=== PATIENT | female | born 1995 ===

== ENCOUNTER 2020-11-21 15:35 | Inpatient (IN) | payer MEDICAID ==
[~2020-11-21] VITALS: Ht 154.9 cm; Wt 59.0 kg
[2020-11-21] MEDS ORDERED: ONDANSETRON ODT 4 MG PO PRN (17:00)
[2020-11-21] MEDS ORDERED: POLYETHYLENE GLYCOL 17 GM PACKET PO PRN (17:00)
[2020-11-21] MEDS ORDERED: ACETAMINOPHEN 325 MG TABLET PO PRN (17:00)
[2020-11-21] MEDS ORDERED: MELOXICAM 15 MG TABLET PO PRN (17:00)
[2020-11-21] MEDS ORDERED: BISACODYL 10 MG SUPP PR PRN (17:00)
[2020-11-21] MEDS ORDERED: MELO7.5T5 PO (17:12)
[2020-11-21] MEDS ORDERED: BENZ2TAB6 PO (17:12)
[2020-11-21] MEDS ORDERED: TRAZ-175 PO (17:12)
[2020-11-21] MEDS ORDERED: CARI1CAP PO (17:12)
[2020-11-21] MEDS ORDERED: CYCL5TAB PO (17:12)
[2020-11-21] MEDS ORDERED: LORazepam 1MG TABLET PO PRN (17:30)
[2020-11-21 19:55] VITALS: BP 118/85
[2020-11-21 20:00] VITALS: BP 118/85
[2020-11-21] MEDS ORDERED: BENZTROPINE 1 MG TABLET PO SCH (21:00)
[2020-11-21] MEDS: CYCLOBENZAPRINE 10 MG TABLET PO SCH (21:30)
[2020-11-21] MEDS: TRAZODONE 100MG TABLET PO PRN (21:31)
[2020-11-22 05:46] LABS: CHOL/HDL RATIO 2.4; FREE T4 (FREE THYROXINE) 0.92 ng/dL (0.76-1.46); LDL/HDL RATIO 1.1 (0.5-3.0)
[2020-11-22 07:30] VITALS: BP 100/65
[2020-11-22] MEDS: CARIPRAZINE 3 MG CAP PO SCH (08:37)
[2020-11-22] MEDS: NICOTINE 7 MG/24 HR PATCH.TD24 TD SCH (08:40)
[2020-11-22] MEDS ORDERED: LITH300T3 PO (08:46)
[2020-11-22 19:28] VITALS: BP 100/64
[2020-11-22] MEDS: CYCLOBENZAPRINE 10 MG TABLET PO SCH (20:44)
[2020-11-22] MEDS: TRAZODONE 100MG TABLET PO PRN (20:45)
[2020-11-22] MEDS: BENZTROPINE 1 MG TABLET PO SCH (20:45)
[2020-11-22] MEDS: LITHIUM CARBONATE 300 MG CAPSULE PO SCH (20:45)
[2020-11-22] MEDS: TRIAMCINOLONE CRM 0.1%, 15GM TP SCH (20:45)
[2020-11-23 07:26] VITALS: BP 106/73
[2020-11-23] MEDS: CARIPRAZINE 3 MG CAP PO SCH (09:00)
[2020-11-23] MEDS: TRIAMCINOLONE CRM 0.1%, 15GM TP SCH ×2 (09:36→20:33)
[2020-11-23] MEDS: NICOTINE 7 MG/24 HR PATCH.TD24 TD SCH (09:37)
[2020-11-23] MEDS: LITHIUM CARBONATE 300 MG CAPSULE PO SCH ×2 (09:37→20:33)
[2020-11-23] MEDS ORDERED: CARIPRAZINE 3 MG CAP PO SCH (18:00)
[2020-11-23 19:40] VITALS: BP 104/76
[2020-11-23] MEDS: BENZTROPINE 1 MG TABLET PO SCH (20:32)
[2020-11-23] MEDS: CYCLOBENZAPRINE 10 MG TABLET PO SCH (20:33)
[2020-11-23] MEDS: TRAZODONE 100MG TABLET PO PRN (20:42)
[2020-11-24 07:41] VITALS: BP 106/73
[2020-11-24] MEDS: TRIAMCINOLONE CRM 0.1%, 15GM TP SCH ×2 (09:00→20:54)
[2020-11-24] MEDS: LITHIUM CARBONATE 300 MG CAPSULE PO SCH ×2 (09:15→20:53)
[2020-11-24] MEDS: NICOTINE 7 MG/24 HR PATCH.TD24 TD SCH (09:15)
[2020-11-24] MEDS: CARIPRAZINE 3 MG CAP PO SCH (17:41)
[2020-11-24 19:42] VITALS: BP 102/65
[2020-11-24] MEDS: TRAZODONE 100MG TABLET PO PRN (20:53)
[2020-11-24] MEDS: CYCLOBENZAPRINE 10 MG TABLET PO SCH (20:53)
[2020-11-24] MEDS: BENZTROPINE 1 MG TABLET PO SCH (20:53)
[2020-11-25 07:44] VITALS: BP 101/62
[2020-11-25] MEDS: NICOTINE 7 MG/24 HR PATCH.TD24 TD SCH (08:30)
[2020-11-25] MEDS: LITHIUM CARBONATE 300 MG CAPSULE PO SCH ×2 (08:31→19:43)
[2020-11-25] MEDS: TRIAMCINOLONE CRM 0.1%, 15GM TP SCH ×2 (08:39→19:43)
[2020-11-25] MEDS: CARIPRAZINE 3 MG CAP PO SCH (17:00)
[2020-11-25] MEDS: CYCLOBENZAPRINE 10 MG TABLET PO SCH (19:43)
[2020-11-25] MEDS: BENZTROPINE 1 MG TABLET PO SCH (19:43)
[2020-11-25 19:50] VITALS: BP 105/65
[2020-11-25] MEDS: TRAZODONE 100MG TABLET PO PRN (20:18)
[2020-11-26 08:03] VITALS: BP 113/75
[2020-11-26] MEDS: NICOTINE 7 MG/24 HR PATCH.TD24 TD SCH (08:07)
[2020-11-26] MEDS: LITHIUM CARBONATE 300 MG CAPSULE PO SCH (08:07)
[2020-11-26] MEDS: TRIAMCINOLONE CRM 0.1%, 15GM TP SCH (08:10)
[2020-11-26] MEDS ORDERED: LITH300C PO (10:03)
[2020-11-26] MEDS ORDERED: NICO-485 TD (10:03)
[2020-11-26] MEDS ORDERED: BENZ1TAB61 PO (10:03)
[2020-11-26] MEDS ORDERED: CARI3CAP PO (10:03)
== END 2020-11-26 15:00 | disposition home or self-care (01) | DRG 753 ==
LOC: UNDOADMIN 19:57 → 3E 19:57
PROVIDERS: ADMIT Psychiatry & Neurology Psychosomatic Medicine; ATTEND Psychiatry & Neurology Psychosomatic Medicine
DX: F31.30 Bipolar disorder, current episode depressed, mild or moderate severity, unspecified (principal); R45.851 Suicidal ideations; F17.290 Nicotine dependence, other tobacco product, uncomplicated; J45.909 Unspecified asthma, uncomplicated; L30.9 Dermatitis, unspecified; G89.29 Other chronic pain; G47.00 Insomnia, unspecified; Z88.8 Allergy status to other drugs, medicaments and biological substances; Z86.16 Personal history of COVID-19
CPT/HCPCS: 36415; 71045; 80061; 80178; 84439; 84443; 93005